=== PATIENT | female | born 1965 | race Caucasian/White ===

== ENCOUNTER → 2023-08-05 09:59 | Outpatient (REF) | payer BC, SELFPAY | LOC: RAD 09:59 | PROVIDERS: ATTENDING PHYSICIAN Internal Medicine Cardiovascular Disease; FAMILY PHYSICIAN Family Medicine | DX: I49.3 Ventricular premature depolarization (principal); R06.00 Dyspnea, unspecified; Z82.49 Family history of ischemic heart disease and other diseases of the circulatory system; R07.9 Chest pain, unspecified | CPT/HCPCS: 75574; Q9967 ==